=== PATIENT | female | born 1965 | race African-American/Black ===

== ENCOUNTER 2017-08-23 09:53 | Observation (INO) | payer OTHER ==
[~2017-08-23] VITALS: Ht 154.9 cm; Wt 91.9 kg
[~2017-08-23 09:53] MED LIST: COLACE100 MG PO; ECO81 PO; ESG PO; MAC100 PO; METHOCARBAMOL500 MG PO; ZOC10 PO
[2017-08-23 09:56] VITALS: Ht 154.9 cm; Wt 91.9 kg
[2017-08-23 10:36] LABS: BASOPHIL % 0.3 % (0-2); PLATELET COUNT 183 x10^3mcL (130-400); RED CELL DISTRIBUTION WIDTH 14.5 % (11.5-14.5)
[2017-08-23 10:57] LABS: CALCIUM 8.7 mg/dL (8.5-10.1); CHLORIDE SERUM 105 mmol/L (98-107); GFR1 > 60 mL/min; GLUCOSE SERUM 88 mg/dL (74-106); POTASSIUM SERUM 4.4 mmol/L (3.5-5.1); SODIUM SERUM 140 mmol/L (136-145)
[2017-08-23 11:01] LABS: ALBUMIN 3.7 g/dL (3.4-5.0); ALKALINE PHOSPHATASE 80 U/L (46-116); ALT/SGPT 27 U/L (14-59); AMYLASE 52 U/L (25-115); AST/SGOT 24 U/L (15-37); LIPASE 165 IU/L (73-393); TOTAL PROTEIN, SERUM 7.3 g/dL (6.4-8.2)
[2017-08-23 13:31] LABS: T3 TOTAL 0.73 ng/mL
[2017-08-23 13:37] LABS: FREE T4 0.8 ng/dL (0.76-1.46)
[2017-08-23 13:38] LABS: FREE THYROXINE INDEX 1.4 ug/dL (1.4-4.5); T4(THYROXINE) 3.8 ug/dL (4.7-13.3)
[2017-08-23 14:01] LABS: MAGNESIUM 1.8 mg/dL (1.8-2.4); PHOSPHOROUS 3.4 mg/dL (2.5-4.9)
[2017-08-23 14:02] LABS: CHOLESTEROL/HDL RATIO 2.9
[2017-08-23 14:11] VITALS: BP 131/69
[2017-08-23 16:05] LABS: UA SPECIFIC GRAVITY 1.015 (1.005-1.035); microscopic required? YES; urine erythrocyte TRACE (NEGATIVE)
[2017-08-23 16:31] LABS: AMPHETAMINE QUAL UR NONE DETECTED (NEG <=1000)
[2017-08-23 16:47] VITALS: BP 136/73
[2017-08-23 22:52] VITALS: BP 113/68
[2017-08-24 05:53] VITALS: BP 104/61
[2017-08-24 06:33] LABS: BASOPHIL % 0.3 % (0-2); PLATELET COUNT 172 x10^3mcL (130-400); RED CELL DISTRIBUTION WIDTH 14.2 % (11.5-14.5)
[2017-08-24 06:41] LABS: CALCIUM 8.3 mg/dL (8.5-10.1); CARBON DIOXIDE 27.1 mmol/L (21-32); CHLORIDE SERUM 109 mmol/L (98-107); CREATININE SERUM 0.9 mg/dL (0.6-1.0); GFR1 > 60 mL/min; GLUCOSE SERUM 104 mg/dL (74-106); POTASSIUM SERUM 4.4 mmol/L (3.5-5.1); SODIUM SERUM 142 mmol/L (136-145)
[2017-08-24 08:56] VITALS: BP 147/78
[2017-08-24 10:55] VITALS: BP 147/78
[2017-08-24] MEDS ORDERED: SIMETHICONE80 MG CH (11:26)
== END 2017-08-24 13:25 | disposition home or self-care (01) | DRG 392 ==
LOC: ED 09:53 → DU 12:17 → MU 08-24 06:33
PROVIDERS: Emergency Medicine; Family Medicine
DX: A08.4 Viral intestinal infection, unspecified (principal); D18.03 Hemangioma of intra-abdominal structures; K44.9 Diaphragmatic hernia without obstruction or gangrene; E78.5 Hyperlipidemia, unspecified; R73.03 Prediabetes; E66.01 Morbid (severe) obesity due to excess calories; Z68.39 Body mass index [BMI] 39.0-39.9, adult; Z91.14 Patient's other noncompliance with medication regimen
CPT/HCPCS: 83880; 84439; 87046; 87046-59; 90658; G0378; J0696; J1885; J7030; Q0092

== ENCOUNTER 2018-07-06 15:14 | Emergency (ER) | payer OTHER ==
[~2018-07-06] VITALS: Ht 154.9 cm; Wt 95.7 kg
[~2018-07-06 15:14] MED LIST changes: +SIMETHICONE80 MG CH
[2018-07-06 15:26] VITALS: BP 127/85; Ht 154.9 cm; Wt 95.7 kg
== END 2018-07-06 18:03 | disposition home or self-care (01) ==
LOC: ED 15:14
DX: J11.1 Influenza due to unidentified influenza virus with other respiratory manifestations (principal); K21.9 Gastro-esophageal reflux disease without esophagitis

== ENCOUNTER 2019-05-04 05:38 | Emergency (ER) | payer OTHER ==
[~2019-05-04] VITALS: Ht 154.9 cm; Wt 92.5 kg
[2019-05-04 05:41] VITALS: Ht 154.9 cm; Wt 92.5 kg
[2019-05-04 08:21] VITALS: BP 120/70
== END 2019-05-04 08:00 | disposition home or self-care (01) ==
LOC: ED 05:38
DX: M75.51 Bursitis of right shoulder (principal); K21.9 Gastro-esophageal reflux disease without esophagitis
CPT/HCPCS: J1885